=== PATIENT | female | born 1965 | race Two or more races ===

== ENCOUNTER 2020-10-06 01:22 | Emergency (ER) | payer OTHER ==
[~2020-10-06] VITALS: Ht 167.6 cm; Wt 62.6 kg
[2020-10-06] VITALS (9 sets, daily range): BP systolic 100–126; BP diastolic 63–80
--- NOTE | 2020-10-06 01:39 | Emergency Room Report ---
History of Present Illness General Chief Complaint: Upper Respiratory Illness Source: Patient, Family Member, Medical Record (Tye Balbuena MD) Present Illness HPI This is a 55-year-old female with a history of throat cancer status post radiation chemotherapy 2 years ago. She was just discharged from [facility] 2 to 3 weeks ago secondary to sepsis from respiratory failure requiring intubation from pneumonia. She was in the hospital for 8 days. She was intubated for 4 to 5 days. She has a chronic cough and hard time swallowing. She presents today with chief complaint of throat pain and coughing up blood. According to her daughter, waylon around 11:45 PM, she had a mouthful of blood. There is no fever chills. No nausea no vomiting. Since then she has streaks of blood when she coughed. She is not on blood thinner. Denies any other complaint. Pain is chronic in nature. Localized neck. Hoarseness in her voice has gotten a little worse since she was intubated. Her daughter described her pneumonia as a sac with questionable fluid in the right upper lobe. The doctor put her on antibiotics and will repeat a CAT scan in 2 months to see if it got better or not. One of her discharge diagnosis was throat cancer. Per daughter, she has been spitting up more phlegm since hospitalization. (Tye Balbuena MD) Allergies: Coded Allergies: AKIKO INHIBITORS (Verified Allergy, Unknown, 10/06/20) IBUPROFEN (Verified Allergy, Unknown, 10/06/20) LATEX (Verified Allergy, Unknown, 10/06/20) COVID-19 Screening Contact w/high risk pt: No Experienced COVID-19 symptoms?: No COVID-19 Testing performed [employer]: No (Tye Balbuena MD) Patient History Past Medical History: see triage record, old chart reviewed Past Surgical History: other Pertinent Family History: none Social History: Denies: smoking Now: No Immunizations: other Reviewed Nursing Documentation: PMH: Agreed; PSxH: Agreed (Tye Balbuena MD) Review of Systems Eye: Denies: eye pain, blurred vision ENT: Denies: ear pain, nose congestion, throat swelling Respiratory: Reports: cough, shortness of breath Cardiovascular: Denies: chest pain, palpitations Gastrointestinal: Denies: abdominal pain, diarrhea, nausea, vomiting Musculoskeletal: Denies: back pain, joint pain Skin: Denies: rash Neurological: Denies: headache, numbness Endocrine: Denies: increased thirst, increased urine Hematologic/Lymphatic: Denies: easy bruising All Other Systems: negative except mentioned in HPI (Tye Balbuena MD) Physical Exam Vital Signs Date Time Temp Pulse Resp B/P (MAP) Pulse Ox O2 Delivery O2 Flow Rate FiO2 10/06/20 01:33 18 Vitals unremarkable Sp02 EP Interpretation: reviewed, normal General Appearance: well appearing, no apparent distress, alert, thin Head: normocephalic, atraumatic Eyes: bilateral eye PERRL, bilateral eye EOMI ENT: hearing grossly normal, normal pharynx Neck: full range of motion, supple, no meningismus Respiratory: chest non-tender, lungs clear, normal breath sounds Cardiovascular #1: regular rate, rhythm, no murmur Gastrointestinal: normal bowel sounds, non tender, no mass, no organomegaly, no bruit, non-distended Musculoskeletal: back normal, normal range of motion, gait/station normal Psychiatric: mood/affect normal (Tye Balbuena MD) Medical Decision Making Diagnostic Impression: Primary Impression: Aspiration pneumonia Qualified Codes: J69.0 - Pneumonitis due to inhalation of food and vomit Additional Impressions: Throat mass Hemoptysis ER Course Patient presents with hemoptysis. CT neck showed a mass along the larynx. There is thickening of the epiglottis and irregular asymmetric thickening of the vocal cords. Airway is also narrow somewhat. There is also an 8 mm peripherally enhancing focal hypodense lesion seen at the midline in the deep to the hyoid bone. This is question abscess versus necrotic component of malignancy. I suspect that she has throat cancer with necrosis causing bleeding. Her bleeding has stopped. Will admit versus transfer based on insurance. (Tye Balbuena MD) ER Course Patient signed out to me by previous physician. She has remained hemodynamically stable in the emergency department. Insurance approved her for admission here at [facility] under the care of Dr. White. He was informed of the patient but recommended transfer due to the lack of ENT here at this hospital. Will attempt transfer. (Didier De Paz M.D.) EKG Diagnostic Results Troponin ordered: Yes Rate: normal Rhythm: NSR ST Segments: no acute changes (Tye Balbuena MD) Rhythm Strip Diag. Results EP Interpretation: yes Rate: 75 Rhythm: NSR, no PVC's, no ectopy (Tye Balbuena MD) Chest X-Ray Diagnostic Results Chest X-Ray Diagnostic Results : Chest X-Ray Ordered: Yes # of Views/Limited/Complete: 1 View Indication: Other EP Interpretation: Yes Interpretation: no consolidation, no effusion, no pneumothorax, no acute cardiopulmonary disease Impression: No acute disease Electronically Signed by: Tye Balbuena MD (Tye Balbuena MD) CT/MRI/US Diagnostic Results CT/MRI/US Diagnostic Results #1: Imaging Test Ordered: CT neck Impression Read by radiologist. There is extensive mass centered along the larynx. There is a hypodense lesion seen in the midline in the deep to the hyoid bone, question abscess versus necrotic component of malignancy. There is destructive change involving the hyoid cartilage and cricoid cartilage bilaterally. CT/MRI/US Diagnostic Results #2: Imaging Test Ordered: CT chest Impression Read by radiologist. There is no evidence of pulmonary malaise and. There is biapical lung scarring. There is opacification seen within the proximal right mainstem bronchus, question aspiration. (Tye Balbuena MD) Last Vital Signs Date Time Temp Pulse Resp B/P (MAP) Pulse Ox O2 Delivery O2 Flow Rate FiO2 10/06/20 01:33 18 Status: improved (Tye Balbuena MD) Disposition: ADMITTED INPATIENT Condition: Serious Referrals: NOT CHOSEN IPA/,REFERRING (PCP) Tye Balbuena MD Oct 06, 2020 01:39 Didier De Paz M.D. Oct 06, 2020 08:11
[2020-10-06] MEDS ORDERED: Omnipaque-300 100ml vial INJ ONE (01:45)
[2020-10-06] MEDS ORDERED: Omnipaque 350 100ml vial INJ PRN (01:45)
[2020-10-06] MEDS ORDERED: FERROUS SULFAT325 MG ORAL (01:53)
[2020-10-06] MEDS ORDERED: ALBUTEROL2.5 MG/3 M INH (01:53)
[2020-10-06] MEDS ORDERED: DUONEB 0.5-3(2.53 ML HHN (01:53)
[2020-10-06] MEDS ORDERED: TYLENOL EXTRA500 MG ORAL (01:53)
--- NOTE | 2020-10-06 02:15 | NUR ---
ED Nurse Note: IV ACCESS ESTABLISHED. BLOOD AND COVID SWAB COLLECTED; SENT DOWN TO LAB. UNABLE TO COLLECT URINE AT THIS TIME; PATIENT STATES WILL PROVIDE WHEN ABLE.
[2020-10-06 02:29] LABS: BASOPHILS % (AUTO) 1.2 % (0.0-2.0); EOSINOPHILS % (AUTO) 2.9 % (0.0-3.0); HEMATOCRIT 39.3 % (37.0-47.0); HEMOGLOBIN 11.9 G/DL (12.0-16.0); MEAN CORPUSCULAR VOLUME 85 FL (80-99); MONOCYTES % (AUTO) 10.4 % (1.0-10.0); NEUTROPHILS % (AUTO) 76.6 % (45.0-75.0); PLATELET COUNT 170 K/UL (150-450); RED BLOOD COUNT 4.61 M/UL (4.20-5.40); RED CELL DISTRIBUTION WIDTH 13.3 % (11.6-14.8); WHITE BLOOD COUNT 6.9 K/UL (4.8-10.8)
[2020-10-06 02:40] LABS: CALCIUM 9.2 MG/DL (8.5-10.1); POTASSIUM 3.4 MMOL/L (3.5-5.1)
[2020-10-06 02:45] LABS: ALBUMIN 3.1 G/DL (3.4-5.0); ALBUMIN/GLOBULIN RATIO 0.7 (1.0-2.7); BILIRUBIN,TOTAL 0.2 MG/DL (0.2-1.0)
[2020-10-06] MEDS ORDERED: Morphine Sulfate 4mg/ml Inj (IV USE ONLY) IVP ONE ×4 (02:45→14:15)
--- NOTE | 2020-10-06 03:11 | NUR ---
PT MEDS IV MS 4MG AND ZOFRAN 4MG GIVEN PT TO CT VIA GUERNEY
--- NOTE | 2020-10-06 04:24 | NUR ---
DR barron to darcy pt PT GIVEN [id number] IV FOR PAIN
--- NOTE | 2020-10-06 05:22 | Diagnostic Imaging Report ---
EXAM: CT Angiography Chest With Intravenous Contrast CLINICAL HISTORY: PAIN TECHNIQUE: Axial computed tomographic angiography images of the chest with intravenous contrast. CTDI is 53.50 mGy and DLP is 166.30 mGy-cm. One or more of the following dose reduction techniques were used: automated exposure control, adjustment of the mA and/or kV according to patient size, use of iterative reconstruction technique. MIP reconstructed images were created and reviewed. Coronal and sagittal reformatted images were created and reviewed. COMPARISON: CXR performed earlier. CT Neck performed at the same time. FINDINGS: Pulmonary arteries: No evidence of pulmonary embolism. Aorta: No acute findings. No thoracic aortic aneurysm. Lungs: Opacification seen within the within the proximal right mainstem bronchus, question aspiration. Biapical lung scarring. Subtle ground glass attenuation of the lung bases, question due to hypoventilation rather than infiltrate. No mass. Pleural space: Unremarkable. No significant effusion. No pneumothorax. Heart: Unremarkable. No cardiomegaly. No significant pericardial effusion. No evidence of RV dysfunction. Bones/joints: Partial visualization of ACDF in the cervical spine. Please see CT neck report. Degenerative changes of the thoracic spine. No acute fracture. No dislocation. Soft tissues: Unremarkable. Lymph nodes: Unremarkable. No enlarged lymph nodes. IMPRESSION: 1. No evidence of pulmonary embolism. 2. Biapical lung scarring. Subtle ground glass attenuation of the lung bases, question due to hypoventilation rather than infiltrate. 3. Opacification seen within the within the proximal right mainstem bronchus, question aspiration. <MYCVCSECTION> Communications: 10/06/20 05:23 Call Doctor Regarding Above results, called DR Balbuena on 10/06 05:23 (-08:00)
--- NOTE | 2020-10-06 05:33 | Diagnostic Imaging Report ---
EXAM: CT Neck With Intravenous Contrast CLINICAL HISTORY: PAIN TECHNIQUE: Axial computed tomography images of the neck with intravenous contrast. CTDI is 74.70 mGy and DLP is 467.70 mGy-cm. One or more of the following dose reduction techniques were used: automated exposure control, adjustment of the mA and/or kV according to patient size, use of iterative reconstruction technique. MIP reconstructed images were created and reviewed. Coronal and sagittal reformatted images were created and reviewed. COMPARISON: No relevant prior studies available. FINDINGS: Oropharynx: Some edema is also seen with possible ulcerations in the left side oropharynx at the level of the epiglottis and possibly involving the superior constrictor. Hypopharynx: Unremarkable. Larynx: There is extensive mass centered along the larynx. There is thickening of the epiglottis and irregular asymmetric thickening of the vocal cords with greater thickening seen on the right. The airway is narrowed to about 12.6 x 6.3 mm in AP diameter at the level of the supraglottic airway. Some subglottic thickening is also seen. The subglottic airway is narrowed to about 11.4 x 6.6 mm. Question posttreatment changes, laryngitis/epiglottitis and malignancy. A 8 mm peripherally enhancing focal hypodense lesion is seen at the midline in the deep to the hyoid bone, question abscess versus necrotic component of malignancy. There is likely destructive changes involving the thyroid cartilages and cricoid cartilages bilaterally. . Difficult to evaluate for interval change without prior studies. Trachea: Unremarkable. Retropharyngeal space: Unremarkable. Submandibular/parotid glands: Unremarkable. Glands are normal in size. Thyroid: Unremarkable. No enlarged or calcified nodules. Bones/joints: No acute fracture. Status post ACDF of C5-C7. Soft tissues: Unremarkable. Vasculature: No acute findings. Lymph nodes: Bilateral level II lymph nodes measuring up to 11.8 mm. Left level III lymph nodes measuring up to 11.9 mm. Lung apices: Unremarkable as visualized. IMPRESSION: 1. There is extensive mass centered along the larynx. There is thickening of the epiglottis and irregular asymmetric thickening of the vocal cords with greater thickening seen on the right. The airway is narrowed to about 12.6 x 6.3 mm in AP diameter at the level of the supraglottic airway. Some subglottic thickening is also seen. The subglottic airway is narrowed to about 11.4 x 6.6 mm. Question posttreatment changes, laryngitis/epiglottitis and malignancy. A 8 mm peripherally enhancing focal hypodense lesion is seen at the midline in the deep to the hyoid bone, question abscess versus necrotic component of malignancy. There is likely destructive changes involving the thyroid cartilages and cricoid cartilages bilaterally. Some edema is also seen with possible ulcerations in the left side oropharynx at the level of the epiglottis and possibly involving the superior constrictor. Difficult to evaluate for interval change without prior studies. 2. Bilateral level II lymph nodes measuring up to 11.8 mm. Left level III lymph nodes measuring up to 11.9 mm. <MYCVCSECTION> Communications: 10/06/20 05:38 Call Doctor Regarding Above results, called LENNOX Noriega, given to DR Balbuena on 10/06 05:38 (-08:00)
[2020-10-06] MEDS ORDERED: cefTRIAXone 1 GM in NS 55 ML IVPB ONE (05:45)
[2020-10-06] MEDS ORDERED: Azithromycin 500 MG in NS 275 ML IV ONE (05:45)
--- NOTE | 2020-10-06 07:05 | NUR ---
ED Nurse Note: Pt is alerted and orietnted x 4, pt placed on monitor car operator, IV line patent and intact. intiated azithromycin order. pt family walked out to waiting room. pt appears comfortable on her cellphone. lights dimmed and curtain closed to increase privacy and comfort. VSS
--- NOTE | 2020-10-06 07:08 | NUR ---
ED Nurse Note: daughter pepper # [phone]
--- NOTE | 2020-10-06 09:30 | NUR ---
ED Nurse Note: PT IN BED COMFORTABLE, ON PHONE WITH FAMILY.
--- NOTE | 2020-10-06 10:00 | NUR ---
ED Nurse Note: ASSISTED PT TO BATHROOM.
--- NOTE | 2020-10-06 11:30 | NUR ---
ED Nurse Note: Pt on her phone playing games, pt appears comfortable. additional blankets provided to pt.
--- NOTE | 2020-10-06 13:25 | NUR ---
ED Nurse Note: Pt resting in bed, lights dimmed. VSS
--- NOTE | 2020-10-06 14:10 | NUR ---
ED Nurse Note: Per ermd verbal order, add order for 4 mg morphine
[2020-10-06] MEDS ORDERED: Morphine Sulfate 4mg/ml Inj (IV USE ONLY) ONE (14:11)
--- NOTE | 2020-10-06 15:35 | NUR ---
ED Nurse Note: attempted multiple times to give report to dana luke report number given by dana [phone]. No answer.
--- NOTE | 2020-10-06 15:48 | NUR ---
ED Nurse Note: Pt ambulated to restroom with walker
--- NOTE | 2020-10-06 15:53 | Cardiology Report ---
APPROVED REPORT EKG Measurement Heart [id number] <Conclusion> Normal sinus rhythm Nonspecific T wave abnormality Abnormal ECG
--- NOTE | 2020-10-06 16:00 | Consultation ---
DATE OF CONSULTATION: 10/06/2020 INTERNAL MEDICINE/PULMONARY CONSULTATION HISTORY OF PRESENT ILLNESS: This is a 55-year-old female who presented to the emergency room with complaints of cough and difficulty with swallowing. She reported coughing of blood and had throat discomfort. Per her family, the patient had a mouthful of blood last night. The patient was seen and imaged in the emergency room and a neck and chest CT was obtained, results of which were suggestive of a masslike process in the throat. The patient has a history of throat cancer and has been and chemotherapy. Hospital after being admitted for respiratory failure, requiring intubation. She also reports hoarseness, which has gotten worse. ALLERGIES: AKIKO inhibitors, ibuprofen, and latex. REVIEW OF SYSTEMS: Denies any headache, hematemesis, melena, hematochezia, night sweats, or weight loss. She admits to having hemoptysis. SURGERIES: None reported. She had radiation to the neck. HOME MEDICATIONS: Reviewed and reconciled in chart. PHYSICAL EXAMINATION: GENERAL: A 55-year-old female. HEENT: Unremarkable. She has a fullness in the throat. CHEST: Clear breath sounds bilaterally. ABDOMEN: Soft. There is no edema. LABORATORY DATA: Lab testing shows normal CBC with a hemoglobin of 0.9, potassium 3.4. IMAGING STUDIES: Discussed above. IMPRESSION: 1. Hemoptysis. 2. Head and neck carcinoma. 3. Recent intubation/pneumonia. DISCUSSION: Her CT neck shows a mass along the larynx with thickening of the epiglottis and asymmetric thickening of the vocal cords. airway is also narrowed. She will need specialty evaluation. At this point, she is best served by transferring to a higher level of care due to findings of ENT malignancy and a narrowed airway. Discussed with the ER physician. We will assist in discharge planning. Brayden White M.D. DR: DELFIN JOB#: [id number] CC:
--- NOTE | 2020-10-06 16:20 | NUR ---
ED Nurse Note: unit 53 [facility] at bedside, telephone report given to JEFF lopez from [facility]. pt vss.
--- NOTE | 2020-10-06 17:05 | NUR ---
ED Nurse Note: pt left with [facility], pt copies of CT given on disk. pt took all belongings vss.
--- NOTE | 2020-10-07 14:52 | Diagnostic Imaging Report ---
Indication: Chest pain Technique: XRAY Chest 1v Comparison: None Findings: No focal airspace consolidation is appreciated radiographically. There is no pleural effusion or pneumothorax. Heart size within normal limits. Mediastinal contours are sharp. No acute osseous or metastatic. Lower cervical fixation hardware partially visualized. Impression: No focal airspace consolidation, pleural effusion or pneumothorax.
== END 2020-10-06 17:05 | disposition other institution (70) ==
LOC: EMR 01:35
DX: J69.0 Pneumonitis due to inhalation of food and vomit (principal); R04.2 Hemoptysis; R22.1 Localized swelling, mass and lump, neck; Z88.6 Allergy status to analgesic agent; Z91.040 Latex allergy status; Z88.8 Allergy status to other drugs, medicaments and biological substances
CPT/HCPCS: 36415; 70491; 71045; 71275; 80053; 84484; 85025; 93005; 96361; 96365; 96368; 96375; 96376; 99285; J0456; J0696; J2270; J2405; J7030; J7050; Q9967; U0002

== ENCOUNTER → 2020-12-28 | Emergency (ER) | payer OTHER ==
[~2020-12-28] VITALS: Ht 165.1 cm; Wt 52.2 kg
[~2020-12-28] MED LIST: ALBUTEROL2.5 MG/3 M INH; Cefepime HCl 1 GM in D5W 55 ML IVPB ONE; DUONEB 0.5-3(2.53 ML HHN; FERROUS SULFAT325 MG ORAL; Omnipaque 350 100ml vial INJ PRN; Omnipaque-300 100ml vial INJ ONE; TYLENOL EXTRA500 MG ORAL; Vancomycin 1 GM in NS 275 ML IVPB ONE; dexAMETHasone 10mg/ml Inj IV ONE; fentaNYL 100 mcg/2 mL IV ONE
--- NOTE | 2020-12-28 22:30 | Emergency Room Report ---
History of Present Illness General Chief Complaint: SOB Source: Patient, Family Member - daughter Present Illness HPI Patient is a 55-year-old female past medical history of asthma and throat cancer status post chemo 2 years ago who presents to the ER for shortness of breath. Per daughter patient has been short of breath for a long time and has been using her albuterol inhaler but got much worse this evening. She complains of generalized weakness. She denies any fever or chills. She denies any chest pain but complains of chest tightness. Patient is audibly wheezing and stridorous She denies any abdominal pain nausea or vomiting. Patient states that she feels lightheaded. Allergies: Coded Allergies: AKIKO INHIBITORS (Verified Allergy, Unknown, 10/06/20) IBUPROFEN (Verified Allergy, Unknown, 10/06/20) LATEX (Verified Allergy, Unknown, 10/06/20) COVID-19 Screening Contact w/high risk pt: No Experienced COVID-19 symptoms?: No Patient History Reviewed Nursing Documentation: PMH: Agreed; PSxH: Agreed Nursing Documentation-PMH Hx Asthma: Yes Review of Systems All Other Systems: negative except mentioned in HPI Physical Exam Sp02 EP Interpretation: reviewed, normal General Appearance: alert, GCS 15, non-toxic, moderate distress Head: normocephalic, atraumatic Eyes: bilateral eye normal inspection, bilateral eye PERRL ENT: EOM grossly intact, moist mucus membranes Neck: supple, no meningismus, other Respiratory: respiratory distress, accessory muscle use, stridor, wheezing Cardiovascular #1: tachycardia Gastrointestinal: non tender, soft, no guarding, no rebound Rectal: deferred Musculoskeletal: normal range of motion Neurologic: accounts payable technician III-XII nml as tested Psychiatric: no suicidal/homicidal ideation, anxious Skin: no rash Lymphatic: no adenopathy Procedures Critical Care Time Critical Care Time Total critical care time: Approximately 35 minutes. Due to a high probability of clinically significant, life threatening deterioration, the patient required my highest level of preparedness to intervene emergently and I personally spent this critical care time directly and personally managing the patient. This critical care time included obtaining a history; examining the patient; pulse oximetry; ordering and review of studies; arranging urgent treatment with development of a management plan; evaluation of patient's response to treatment; frequent reassessment; and, discussions with other providers.This critical care time was performed to assess and manage the high probability of imminent, life- threatening deterioration that could result in multi-organ failure. It was exclusive of separately billable procedures and treating other patients and teaching time. Please see MDM section and the rest of the note for further information on patient assessment and treatment. Medical Decision Making Diagnostic Impression: Primary Impression: Aspiration pneumonia Additional Impression: Throat mass ER Course Patient presented with shortness of breath and stridorous. Patient given IV Decadron as well as albuterol treatments. Patient is improved but still stridorous would sleeping. Patient CT demonstrates narrowing of the airway. Patient's CT also demonstrates right mainstem bronchus aspiration. [facility] does not have ENT and patient will require ENT as well as pulmonology. I spoke with from the patient's insurance. She states that after reviewing the chart that the patient and her daughter both declined any treatment for the patient. They stated that God will cure her. Patient has been referred to ENT, radiation oncology and other subspecialties all that she has declined. Patient is declining any further treatment. I advised her that she could and she states that she will go home and God will save her. Patient is essentially full code but declining any treatment. The patient is of adult age and has sound mind with no evidence of altered mental status suggestin g metabolic or infections etiologies. I explained in layman's terms the risk of leaving against medical advise including and significant comorbidity. The patient was given reasonable options. This was explained in front of the patient and the bedside nurse KEN Rossi. The AMA for was signed and witnessed by a nurse and the patient. Laboratory Tests Test 12/28/20 22:50 12/28/20 23:01 12/29/20 00:20 White Blood Count 12.4 K/UL (4.8-10.8) H Red Blood Count 5.05 M/UL (4.20-5.40) Hemoglobin 13.8 G/DL (12.0-16.0) Hematocrit 42.0 % (37.0-47.0) Mean Corpuscular Volume 83 FL (80-99) Mean Corpuscular Hemoglobin 27.3 PG (27.0-31.0) Mean Corpuscular Hemoglobin Concent 32.8 G/DL (32.0-36.0) Red Cell Distribution Width 16.7 % (11.6-14.8) H Platelet Count 260 K/UL (150-450) Mean Platelet Volume 8.4 FL (6.5-10.1) Neutrophils (%) (Auto) % (45.0-75.0) Lymphocytes (%) (Auto) % (20.0-45.0) Monocytes (%) (Auto) % (1.0-10.0) Eosinophils (%) (Auto) % (0.0-3.0) Basophils (%) (Auto) % (0.0-2.0) Prothrombin Time 10.7 SEC (9.30-11.50) Prothrombin Time INR 1.0 (0.9-1.1) Activated Partial Thromboplast Time 30 SEC (23-33) D-Dimer 0.32 mg/L FEU (0.00-0.49) Sodium Level 132 MMOL/L (136-145) L Potassium Level 3.8 MMOL/L (3.5-5.1) Chloride Level 94 MMOL/L (98-107) L Carbon Dioxide Level 34 MMOL/L (21-32) H Anion Gap 4 mmol/L (5-15) L Blood Urea Nitrogen 14 mg/dL (7-18) Creatinine 0.7 MG/DL (0.55-1.30) Estimated Glomerular Filtration Rate > 60 mL/min (>60) Glucose Level 111 MG/DL (74-106) H Lactic Acid Level 0.90 mmol/L (0.4-2.0) Calcium Level 9.3 MG/DL (8.5-10.1) Magnesium Level 2.1 MG/DL (1.8-2.4) Ferritin 330 NG/ML (8-388) Total Bilirubin 0.2 MG/DL (0.2-1.0) Aspartate Amino Transferase (AST) 25 U/L (15-37) Alanine Aminotransferase (ALT) 30 U/L (12-78) Alkaline Phosphatase 76 U/L (46-116) Lactate Dehydrogenase 149 U/L (81-234) Total Creatine Kinase 152 U/L (26-308) Troponin I 0.003 ng/mL (0.000-0.056) C-Reactive Protein, Quantitative 4.7 mg/dL (0.00-0.90) H Pro-B-Type Natriuretic Peptide 194 pg/mL (0-125) H Total Protein 7.8 G/DL (6.4-8.2) Albumin 2.9 G/DL (3.4-5.0) L Globulin 4.9 g/dL Albumin/Globulin Ratio 0.6 (1.0-2.7) L Arterial Blood pH 7.407 (7.350-7.450) Arterial Blood Partial Pressure CO2 52.4 mmHg (35.0-45.0) H Arterial Blood Partial Pressure O2 157.1 mmHg (75.0-100.0) H Arterial Blood HCO3 32.2 mmol/L (22.0-26.0) H Arterial Blood Oxygen Saturation 98.9 % (95-100) Arterial Blood Base Excess 6.2 (-2-2) H [place] Test Positive Urine Color Pale yellow Urine Appearance Clear Urine pH 8 (4.5-8.0) Urine Specific [place] 1.015 (1.005-1.035) Urine Protein Negative (NEGATIVE) Urine Glucose (UA) Negative (NEGATIVE) Urine Ketones Negative (NEGATIVE) Urine Blood Negative (NEGATIVE) Urine Nitrite Negative (NEGATIVE) Urine Bilirubin Negative (NEGATIVE) Urine Urobilinogen Normal MG/DL (0.0-1.0) Urine Leukocyte Esterase Negative (NEGATIVE) EKG Diagnostic Results Troponin ordered: Yes When was troponin ordered?: Dec 28, 2020 EKG Time: 23:00 EP Interpretation: Janine Serrano MD Rate: tachycardiac - 103 bpm Rhythm: other - Sinus tachycardia ST Segments: no acute changes ASA given to the pt in ED: No Rhythm Strip Diag. Results Rhythm Strip Time: 23:10 EP Interpretation: yes - Janine Serrano MD Rate: 106 bpm Rhythm: NSR, no PVC's, no ectopy Chest X-Ray Diagnostic Results Chest X-Ray Diagnostic Results : Chest X-Ray Ordered: Yes # of Views/Limited/Complete: 1 View Indication: Shortness of Breath Interpretation: no consolidation, no effusion, no pneumothorax, no acute cardiopulmonary disease Impression: No acute disease Electronically Signed by: Janine Serrano MD CT/MRI/US Diagnostic Results CT/MRI/US Diagnostic Results : Imaging Test Ordered: CT Neck with Contrast Impression EXAM: CT Neck With Intravenous Contrast CLINICAL HISTORY: SOB TECHNIQUE: Axial computed tomography images of the neck with intravenous contrast. CTDI is 87.30 mGy and DLP is 442.50 mGy-cm. One or more of the following dose reduction techniques were used: automated exposure control, adjustment of the mA and/or kV according to patient size, use of iterative reconstruction technique. COMPARISON: No relevant prior studies available. FINDINGS: Oropharynx: No significant tonsillar enlargement. No peritonsillar abscess. Hypopharynx: Unremarkable. Larynx: Normal epiglottis. Somewhat prominent soft tissue thickening in the subglottic larynx with mild narrowing of the airway. Trachea: Unremarkable. Retropharyngeal space: Unremarkable. Submandibular/parotid glands: Glands are normal in size. Thyroid: No nodules. Bones/joints: No acute fracture. C5-C7 fusion. Soft tissues: Unremarkable. Vasculature: Unremarkable. Lymph nodes: No lymphadenopathy. Sinuses: Unremarkable. No acute sinusitis. Mastoid air cells: Unremarkable. No mastoid effusion. Lung apices: Fibronodular scarring. Opacification in the right main bronchus. IMPRESSION: 1. Somewhat prominent soft tissue thickening in the subglottic larynx with mild narrowing of the airway. Correlate with infectious/inflammatory process. It may also be chronic. 2. Opacification/Aspiration material in the right main bronchus. Disposition: AGAINST MEDICAL ADVICE Condition: Critical Additional Instructions: The patient was provided with discharge instructions, notified to follow-up with a primary care doctor and or specialist in the next 24-48 hours, and to return to the ED if they have worsening of their symptoms. Please note that this report is being documented using arGEN-X technology. This can lead to erroneous entry secondary to incorrect interpretation by the dictating instrument. Janine Serrano M.D. Dec 28, 2020 22:30
[2020-12-28] MEDS: Albuterol ud Inhalation HHN PRN ×3 (22:49→22:58)
--- NOTE | 2020-12-28 23:15 | NUR ---
patient prersented to ambulatory triage with complaints of asthma attack, shortness of breathe at rest, pt has history of throat cancer
--- NOTE | 2020-12-28 23:30 | NUR ---
ED Nurse Note: Blood cultures, covid swab and blood specimens sent to lab
[2020-12-28 23:35] LABS: ANION GAP 4 mmol/L (5-15); BLOOD UREA NITROGEN 14 mg/dL (7-18); CALCIUM 9.3 MG/DL (8.5-10.1); CARBON DIOXIDE 34 MMOL/L (21-32); CHLORIDE 94 MMOL/L (98-107); CREATININE 0.7 MG/DL (0.55-1.30); POTASSIUM 3.8 MMOL/L (3.5-5.1); SODIUM 132 MMOL/L (136-145)
[2020-12-28 23:36] LABS: HEMOGLOBIN 13.8 G/DL (12.0-16.0); MEAN CORPUSCULAR VOLUME 83 FL (80-99); PLATELET COUNT 260 K/UL (150-450); RED BLOOD COUNT 5.05 M/UL (4.20-5.40); RED CELL DISTRIBUTION WIDTH 16.7 % (11.6-14.8); WHITE BLOOD COUNT 12.4 K/UL (4.8-10.8)
--- NOTE | 2020-12-28 23:48 | NUR ---
ED Nurse Note: FS and clinicals faxed
[2020-12-28 23:51] LABS: ALANINE AMINOTRANSFERASE 30 U/L (12-78); ALBUMIN 2.9 G/DL (3.4-5.0); ALBUMIN/GLOBULIN RATIO 0.6 (1.0-2.7); ALKALINE PHOSPHATASE 76 U/L (46-116); ASPARTATE AMINO TRANSFERASE 25 U/L (15-37); BILIRUBIN,TOTAL 0.2 MG/DL (0.2-1.0); CREATINE KINASE 152 U/L (26-308); FERRITIN 330 NG/ML (8-388); LACTATE DEHYDROGENASE 149 U/L (81-234)
--- NOTE | 2020-12-29 00:23 | NUR ---
ED Nurse Note: urine sample collected and sent to lab
[2020-12-29 00:39] VITALS: BP 166/98
[2020-12-29 01:14] LABS: APPEARANCE,URINE CLEAR; COLOR,URINE PALE YELLOW; PH,URINE 8 (4.5-8.0); PROTEIN,URINE NEGATIVE (NEGATIVE)
[2020-12-29 01:15] LABS: BILIRUBIN, URINE NEGATIVE (NEGATIVE); GLUCOSE, URINE (UA) NEGATIVE (NEGATIVE); KETONES,URINE NEGATIVE (NEGATIVE); LEUKOCYTE ESTERASE ,URINE NEGATIVE (NEGATIVE); NITRITE,URINE NEGATIVE (NEGATIVE); UROBILINOGEN,URINE NORMAL MG/DL (0.0-1.0)
--- NOTE | 2020-12-29 02:16 | Diagnostic Imaging Report ---
EXAM: CT Neck With Intravenous Contrast CLINICAL HISTORY: SOB TECHNIQUE: Axial computed tomography images of the neck with intravenous contrast. CTDI is 87.30 mGy and DLP is 442.50 mGy-cm. One or more of the following dose reduction techniques were used: automated exposure control, adjustment of the mA and/or kV according to patient size, use of iterative reconstruction technique. COMPARISON: No relevant prior studies available. FINDINGS: Oropharynx: No significant tonsillar enlargement. No peritonsillar abscess. Hypopharynx: Unremarkable. Larynx: Normal epiglottis. Somewhat prominent soft tissue thickening in the subglottic larynx with mild narrowing of the airway. Trachea: Unremarkable. Retropharyngeal space: Unremarkable. Submandibular/parotid glands: Glands are normal in size. Thyroid: No nodules. Bones/joints: No acute fracture. C5-C7 fusion. Soft tissues: Unremarkable. Vasculature: Unremarkable. Lymph nodes: No lymphadenopathy. Sinuses: Unremarkable. No acute sinusitis. Mastoid air cells: Unremarkable. No mastoid effusion. Lung apices: Fibronodular scarring. Opacification in the right main bronchus. IMPRESSION: 1. Somewhat prominent soft tissue thickening in the subglottic larynx with mild narrowing of the airway. Correlate with infectious/inflammatory process. It may also be chronic. 2. Opacification/Aspiration material in the right main bronchus.
--- NOTE | 2020-12-29 03:15 | NUR ---
AMA: SEE AMA FORM.
--- NOTE | 2020-12-29 05:15 | Diagnostic Imaging Report ---
EXAM: XR Chest, 1 View CLINICAL HISTORY: SOB TECHNIQUE: Frontal view of the chest. COMPARISON: 10/06/20 FINDINGS: Lungs: There are mild patchy bibasilar infiltrates consistent with pneumonia. Pleural space: Unremarkable. No pneumothorax. Heart: Unremarkable. No cardiomegaly. Mediastinum: Unremarkable. Bones/joints: Unremarkable. IMPRESSION: There are mild patchy bibasilar infiltrates consistent with pneumonia.
--- NOTE | 2020-12-29 16:16 | Cardiology Report ---
APPROVED REPORT EKG Measurement Heart [id number] <Conclusion> Sinus tachycardia Otherwise normal ECG
--- NOTE | 2020-12-31 02:03 | NUR ---
ED Nurse Note: Notified pt's daughter about positive blood culture result per ER MD request.
== END | disposition left against medical advice (07) ==
LOC: EMR 22:25 → EDBEDREQ 22:33
DX: J69.0 Pneumonitis due to inhalation of food and vomit (principal); R22.9 Localized swelling, mass and lump, unspecified; Z88.6 Allergy status to analgesic agent; Z91.040 Latex allergy status; R00.0 Tachycardia, unspecified; M43.22 Fusion of spine, cervical region
CPT/HCPCS: 36415; 70491; 71045; 80053; 82550; 82728; 82803; 83605; 83615; 83735; 83880; 84484; 85025; 85379; 85610; 85730; 86140; 87040; 93005; 94640; 96361; 96365; 96367; 96375; 99291; J7030; Q9967; U0004; 81003

== ENCOUNTER 2020-12-31 04:38 | Emergency (ER) | payer OTHER ==
[~2020-12-31] VITALS: Ht 167.6 cm; Wt 65.8 kg
[~2020-12-31 04:38] MED LIST changes: -Cefepime HCl 1 GM in D5W 55 ML IVPB ONE; -Omnipaque 350 100ml vial INJ PRN; -Omnipaque-300 100ml vial INJ ONE; -Vancomycin 1 GM in NS 275 ML IVPB ONE; -dexAMETHasone 10mg/ml Inj IV ONE; -fentaNYL 100 mcg/2 mL IV ONE
--- NOTE | 2020-12-31 05:25 | Emergency Room Report ---
History of Present Illness General Chief Complaint: Asthma Source: Patient, Family Member, Medical Record (Tye Balbuena MD) Present Illness HPI This is a 55-year-old female with a history of asthma and throat cancer status post chemotherapy 2 years ago. I saw her in September because she has hemoptysis. She was intubated and hospitalized at [facility] for period time. She was then transferred to [facility] in [place]. She was seen here 3 days ago for increasing shortness of breath. She was supposed to be costa sferred but signed out AMA. According to 's note, patient refused surgery, chemotherapy, radiation because she believed that "God will cure me.". Her chest x-ray show atelectasis and CT neck showed a mass with aspiration pneumonia. Patient had blood work done and blood culture is now growing out gram-positive cocci in 2 bottles. I called the patient to come back. Now patient and her daughter told me that she already had blood work in a home visiting nurse already visited her. She said that her doctor will call her back for an appointment with chemotherapy. This is a completely different from what the note by the previous ER doctor. Since she has been discharged 3 days ago, her condition is the same. She has no fever chills. She still have cough with phlegm and constant spitting. This is unchanged. Worse with exertion. Better with rest. (Tye Balbuena MD) Allergies: Coded Allergies: AKIKO INHIBITORS (Verified Allergy, Unknown, 10/06/20) IBUPROFEN (Verified Allergy, Unknown, 10/06/20) LATEX (Verified Allergy, Unknown, 10/06/20) COVID-19 Screening Contact w/high risk pt: No Experienced COVID-19 symptoms?: No COVID-19 Testing performed PLANNER/SCHEDULER: No COVID-19 Screening: Negative COVID-19 (Tye Balbuena MD) Patient History Past Medical History: see triage record, old chart reviewed Past Surgical History: other Pertinent Family History: none Social History: Denies: smoking Now: No Immunizations: other Reviewed Nursing Documentation: PMH: Agreed; PSxH: Agreed (Tye Balbuena MD) Nursing Documentation-PMH Past Medical History: No Stated History Hx Asthma: Yes Hx Cancer: Yes - vocal cords 2019 (Tye Balbuena MD) Review of Systems Eye: Denies: eye pain, blurred vision ENT: Denies: ear pain, nose congestion, throat swelling Respiratory: Reports: cough, shortness of breath Cardiovascular: Denies: chest pain, palpitations Gastrointestinal: Denies: abdominal pain, diarrhea, nausea, vomiting Musculoskeletal: Denies: back pain, joint pain Skin: Denies: rash Neurological: Denies: headache, numbness Endocrine: Denies: increased thirst, increased urine Hematologic/Lymphatic: Denies: easy bruising All Other Systems: negative except mentioned in HPI (Tye Balbuena MD) Physical Exam Vital Signs Date Time Temp Pulse Resp B/P (MAP) Pulse Ox O2 Delivery O2 Flow Rate FiO2 12/31/20 04:44 98.2 18 20 141/92 (108) 96 Room Air Vitals normal Sp02 EP Interpretation: reviewed, normal General Appearance: alert, mild distress, cachetic Head: normocephalic, atraumatic Eyes: bilateral eye PERRL, bilateral eye EOMI ENT: hearing grossly normal, normal pharynx Neck: full range of motion, supple, no meningismus Respiratory: chest non-tender, normal breath sounds, accessory muscle use, rhonchi Cardiovascular #1: regular rate, rhythm, no murmur Gastrointestinal: normal bowel sounds, non tender, no mass, no organomegaly, no bruit, non-distended Musculoskeletal: back normal, normal range of motion, gait/station normal Psychiatric: mood/affect normal (Tye Balbuena MD) Medical Decision Making Diagnostic Impression: Primary Impression: Bacteremia Additional Impressions: Aspiration pneumonia Qualified Codes: J69.0 - Pneumonitis due to inhalation of food and vomit Throat mass COVID-19 Bronchospasm ER Course Patient presents with abnormal blood culture. I ordered repeat lab work and antibiotics here. Initially, patient said that she was admitted here before. Was not correct. She and her daughter state that they never refused treatment but according to Dr. Mcgraw's note, she spoke with ENT at the transferring hospital and patient has refused all treatment and referral to specialist. In any case, because of the bacteremia, patient will need to be admitted to a hospital for IV antibiotics. Wide spectrum antibiotics given here. Because we do not have ENT, will attempt to transfer the patient. (Tye Balbuena MD) ER Course Please see above note. COVID + from 12/28. Treated with vancomycin and Zosyn. In the process of admission or transfer. Patient with wheezing. Solu-Medrol, Albuterol and Atrovent ordered. Improved after treatments. Contacting Dr. White for admission. Examined by Dr. White and Mr. Santacruz. Phone call from [facility] @ [phone] requesting I speak to Dr. Paulino for transfer. Discussed - initially declined due to COVID. Then called back and accepted the patient to [facility]. 1130 The patient initially refused transfer. I discussed the risk of leaving with the possibility of bacteremia and the risk of . Also discussed the reason for transfer and she agreed. Also I discussed the fact that she had Covid. There is no evidence of Covid type infiltrates on chest x-ray. Several hours elapsed and no ambulance arrived. The patient's breathing was improved after breathing treatments. The patient walked out of the department without notifying personnel. Laboratory Tests Test 12/31/20 05:23 White Blood Count 9.1 K/UL (4.8-10.8) Red Blood Count 5.29 M/UL (4.20-5.40) Hemoglobin 14.1 G/DL (12.0-16.0) Hematocrit 45.9 % (37.0-47.0) Mean Corpuscular Volume 87 FL (80-99) Mean Corpuscular Hemoglobin 26.7 PG (27.0-31.0) L Mean Corpuscular Hemoglobin Concent 30.7 G/DL (32.0-36.0) L Red Cell Distribution Width 16.0 % (11.6-14.8) H Platelet Count 332 K/UL (150-450) Mean Platelet Volume 7.9 FL (6.5-10.1) Neutrophils (%) (Auto) % (45.0-75.0) Lymphocytes (%) (Auto) % (20.0-45.0) Monocytes (%) (Auto) % (1.0-10.0) Eosinophils (%) (Auto) % (0.0-3.0) Basophils (%) (Auto) % (0.0-2.0) Prothrombin Time 10.9 SEC (9.30-11.50) Prothrombin Time INR 1.0 (0.9-1.1) Activated Partial Thromboplast Time 28 SEC (23-33) Urine Color Pale yellow Urine Appearance Clear Urine pH 8 (4.5-8.0) Urine Specific [place] 1.015 (1.005-1.035) Urine Protein Negative (NEGATIVE) Urine Glucose (UA) Negative (NEGATIVE) Urine Ketones Negative (NEGATIVE) Urine Blood Negative (NEGATIVE) Urine Nitrite Negative (NEGATIVE) Urine Bilirubin Negative (NEGATIVE) Urine Urobilinogen Normal MG/DL (0.0-1.0) Urine Leukocyte Esterase Negative (NEGATIVE) Sodium Level 137 MMOL/L (136-145) Potassium Level 3.9 MMOL/L (3.5-5.1) Chloride Level 97 MMOL/L (98-107) L Carbon Dioxide Level 33 MMOL/L (21-32) H Anion Gap 7 mmol/L (5-15) Blood Urea Nitrogen 19 mg/dL (7-18) H Creatinine 0.6 MG/DL (0.55-1.30) Estimated Glomerular Filtration Rate > 60 mL/min (>60) Glucose Level 101 MG/DL (74-106) Lactic Acid Level 0.80 mmol/L (0.4-2.0) Calcium Level 9.6 MG/DL (8.5-10.1) Total Bilirubin 0.3 MG/DL (0.2-1.0) Aspartate Amino Transferase (AST) 40 U/L (15-37) H Alanine Aminotransferase (ALT) 42 U/L (12-78) Alkaline Phosphatase 67 U/L (46-116) Troponin I 0.000 ng/mL (0.000-0.056) Total Protein 8.3 G/DL (6.4-8.2) H Albumin 3.2 G/DL (3.4-5.0) L Globulin 5.1 g/dL Albumin/Globulin Ratio 0.6 (1.0-2.7) L (Haroldo Aj MD) Rhythm Strip Diag. Results EP Interpretation: yes Rhythm: NSR, no PVC's, no ectopy (Haroldo Aj MD) Chest X-Ray Diagnostic Results Chest X-Ray Diagnostic Results : Chest X-Ray Ordered: Yes # of Views/Limited/Complete: 1 View Indication: Shortness of Breath EP Interpretation: Yes Interpretation: no consolidation, no effusion, no pneumothorax Impression: No acute disease Electronically Signed by: Electronically signed by Haroldo Aj MD (Haroldo Aj MD) Last Vital Signs Date Time Temp Pulse Resp B/P (MAP) Pulse Ox O2 Delivery O2 Flow Rate FiO2 12/31/20 04:44 98.2 18 20 141/92 (108) 96 Room Air Status: improved (Tye Balbuena MD) Last Vital Signs Date Time Temp Pulse Resp B/P (MAP) Pulse Ox O2 Delivery O2 Flow Rate FiO2 12/31/20 07:46 97 18 100 Room Air 21 96 16 97 12/31/20 06:22 98.2 153/87 Status: improved (Haroldo Aj MD) Disposition: ELOPED Condition: Serious Referrals: [facility],REFERR[facility] (PCP) Tye Balbuena MD Dec 31, 2020 05:25 Haroldo Aj MD Dec 31, 2020 06:39
--- NOTE | 2020-12-31 05:29 | NUR ---
ED Nurse Note: Pt called back in by ED staff after positive blood culture result. Pt ambulated into ED with x1 assist. Pt reports she is unsteady. Pt AAO x4. C/O throat pain. IV started, blood and urine sent to lab.
[2020-12-31] MEDS ORDERED: Vancomycin 1 GM in NS 275 ML IVPB ONE (05:30)
[2020-12-31] MEDS ORDERED: Piperacillin/Tazobactam 3.375 GM in NS 110 ML IVPB ONE (05:30)
[2020-12-31 05:45] LABS: APPEARANCE,URINE CLEAR; BILIRUBIN, URINE NEGATIVE (NEGATIVE); COLOR,URINE PALE YELLOW; GLUCOSE, URINE (UA) NEGATIVE (NEGATIVE); KETONES,URINE NEGATIVE (NEGATIVE); LEUKOCYTE ESTERASE ,URINE NEGATIVE (NEGATIVE); NITRITE,URINE NEGATIVE (NEGATIVE); PH,URINE 8 (4.5-8.0); PROTEIN,URINE NEGATIVE (NEGATIVE); UROBILINOGEN,URINE NORMAL MG/DL (0.0-1.0)
[2020-12-31 05:48] LABS: HEMATOCRIT 45.9 % (37.0-47.0); HEMOGLOBIN 14.1 G/DL (12.0-16.0); MEAN CORPUSCULAR VOLUME 87 FL (80-99); PLATELET COUNT 332 K/UL (150-450); RED BLOOD COUNT 5.29 M/UL (4.20-5.40); WHITE BLOOD COUNT 9.1 K/UL (4.8-10.8)
[2020-12-31 05:55] VITALS: BP 141/92
[2020-12-31 06:00] LABS: ANION GAP 7 mmol/L (5-15); BLOOD UREA NITROGEN 19 mg/dL (7-18); CALCIUM 9.6 MG/DL (8.5-10.1); CARBON DIOXIDE 33 MMOL/L (21-32); CHLORIDE 97 MMOL/L (98-107); CREATININE 0.6 MG/DL (0.55-1.30); POTASSIUM 3.9 MMOL/L (3.5-5.1); SODIUM 137 MMOL/L (136-145)
[2020-12-31] MEDS ORDERED: Albuterol ud Inhalation HHN ONE ×2 (06:00→07:30)
[2020-12-31 06:04] LABS: ALANINE AMINOTRANSFERASE 42 U/L (12-78); ALBUMIN 3.2 G/DL (3.4-5.0); ALBUMIN/GLOBULIN RATIO 0.6 (1.0-2.7); ALKALINE PHOSPHATASE 67 U/L (46-116); ASPARTATE AMINO TRANSFERASE 40 U/L (15-37); BILIRUBIN,TOTAL 0.3 MG/DL (0.2-1.0)
[2020-12-31 06:22] VITALS: BP 153/87
--- NOTE | 2020-12-31 06:23 | NUR ---
ED Nurse Note: Pt is resting, no new needs identified.
[2020-12-31] MEDS ORDERED: Solu-MEDROL 125mg Inj IVP ONE (07:30)
[2020-12-31] MEDS ORDERED: Ipratropium 0.02% Inh Soln 2.5ml UD HHN ONE (07:30)
[2020-12-31] MEDS ORDERED: HYDROcodone/Acetamin 10/325 tab GT PRN (11:00)
--- NOTE | 2020-12-31 11:35 | NUR ---
Patient presented with wheezing. Resp administered breathing Tx which was tolerated well. Patient is preparing to be transferred to another facility. Awaiting ambulance pick-up
[2020-12-31] MEDS ORDERED: cefTRIAXone 1 GM in D5W 55 ML IV SCH (12:00)
[2020-12-31] MEDS ORDERED: D5W w/KCl 20mEq 1,000 ML IV SCH (12:00)
[2020-12-31] MEDS ORDERED: Azithromycin 500 MG in D5W 275 ML IV SCH (12:00)
[2020-12-31] MEDS ORDERED: HYDROcodone/Acetamin 5/325 tab ORAL ONE (12:15)
--- NOTE | 2020-12-31 13:17 | NUR ---
Patient to be transferred to [facility]. Awaiting transportation.
[2020-12-31] MEDS ORDERED: HYDROcodone/Acetamin 5/325 tab ONE (13:48)
--- NOTE | 2020-12-31 14:27 | History & Physical ---
History and Physical History & Physicial Attending physician: Dr. White Reason for admission: Gram-positive cocci in blood culture from recent ER visit HPI: Ms. Le returns to ED for follow-up since her blood culture grew gram-positive cocci from 12/28/2020. Of note, patient visited our ER on 12/28/2020 for an asthma exacerbatoin. She presented with shortness of breath and hoarseness in her voice. Patient was given IV Decadron and albuterol. Neck CT showed somewhat prominent soft tissue thickening in the subglottic larynx with mild narrowing of the airway. There was also opacification/aspiration material in the right main bronchus. Apparently, both the patient and her daughter declined any further treatment stating that, "God will save her ". Patient required evaluation from ENT and pulmonology but left the hospital AMA despite strong patient education on risks. Her blood work from 12/28/2020 grew gram-positive cocci. She was called and returned to ER. Since the last visit 3 days ago, her condition is the same. She has no fever, or chills. She still has cough with phlegm and constant spitting. Chest x-ray from today reveals no acute disease. She reports that she has received chemo and radiation in 2018 and 2019 for her throat cancer. Patient reports that she has a scheduled chemo session next week. She reveals that after the aspiration pneumonia episode last year, she has been getting nutrition via G-tube. Patient tested positive for COVID-19 PCR on 12/28/2020. PMHx: Bacteremia, hemoptysis, throat mass, aspiration pneumonia, COVID-19 Meds: Tylenol, [place] Allergies: AKIKO inhibitors, ibuprofen, latex FHx: Unknown Personal/Social Hx: Lives at home with daughter ROS: Negative except mentioned in HPI PE: VS: BP 153/87, HR 93, RR 16, wt 65 kg, ht 167 cm General: Patient sitting up in bed using her phone, constantly spitting sputum, NAD HEENT: Head examination reveals that the head is normocephalic, atraumatic without deformity or unusual swelling. Pupils are PERRLA. Very hoarse voice. Chest and Lung: Accessory muscle use, rhonchi appreciated Cardiovascular: Reveals normal S1, S2 without murmurs, rubs or clicks Abdomen: Soft with no tenderness or organomegaly Rectal: Deferred Musculoskeletal: There is no tenderness to palpation. Range of motion is normal Neurological: Cranial nerves II to XII are intact. Gait is normal without ataxia. DTRs are normal. Babinski is downgoing. Laboratory data: CBC unremarkable Chemistries chloride 97, BUN 19, AST 40, albumin 3.2 Urinalysis normal Impression and recommendation: 1. Neck mass - We continued her pain medication - Patient has now been accepted for transfer to [facility] by Dr. Paulino - Awaiting transportation from [facility] 2. Bacteremia -We will continue broad-spectrum antibiotics 3. DVT ppx - on SCDs 4. Respiratory distress -Cool aerosol -Provide supplemental oxygen as needed 5. COVID-19 PCR positive (12/28) -isolation precaution The care for this patient was discussed with my supervising physician. Time spent for this case was approximately 31 minutes. Timbo Santacruz Dec 31, 2020 14:27
--- NOTE | 2020-12-31 16:17 | NUR ---
Patient left facility AMA with IV still attached to arm and refused to return to sign papers after she was found sitting at the bus stop.
--- NOTE | 2021-01-01 13:19 | Diagnostic Imaging Report ---
Indication: Shortness of breath Technique: One view of the chest Comparison: 12/29/2020 Findings: Lungs and pleural spaces are clear. Heart size is normal. A drainage catheter is seen in the left upper quadrant of the abdomen, also evident previously Impression: No acute process
== END 2020-12-31 15:30 | disposition left against medical advice (07) ==
LOC: EMR 04:48 → EDBEDREQ 06:29 → EMR 15:30 → CANBEDREQ 15:55
DX: R78.81 Bacteremia (principal); J69.0 Pneumonitis due to inhalation of food and vomit; U07.1 COVID-19; J98.01 Acute bronchospasm; J39.2 Other diseases of pharynx; Z53.29 Procedure and treatment not carried out because of patient's decision for other reasons; Z88.6 Allergy status to analgesic agent; Z91.040 Latex allergy status; Z88.8 Allergy status to other drugs, medicaments and biological substances; Z85.21 Personal history of malignant neoplasm of larynx
CPT/HCPCS: 36415; 71045; 80053; 81003; 83605; 84484; 85025; 85610; 85730; 87040; 94640; 96361; 96365; 96367; 96375; 99284; J2543; J2930; J3370; J7030; J7050